=== PATIENT | female | born 1980 | race Caucasian/White ===

== ENCOUNTER 2023-05-15 10:35 | Inpatient (IN) | payer OTHER ==
[2023-05-15 11:56] VITALS: BMI 35.3
[2023-05-15] MEDS ORDERED: morphine SULFATE/PF 1 MG/2 ML (2cc Syringe - QUVA) EP ONE (12:16)
[2023-05-15] MEDS ORDERED: ONDANSETRON 4 MG/2 ML VIAL IVPUSH PRN (12:16)
[2023-05-15] MEDS ORDERED: ACETAMINOPHEN 325 MG TABLET (FP) PO PRN (12:16)
[2023-05-15] MEDS ORDERED: IBUPROFEN 600 MG TABLET (FP) PO PRN (12:16)
[2023-05-15] MEDS ORDERED: SODIUM CHLORIDE 0.9% P/F 10 ML VIAL IJ ONE ×2 (12:23→12:57)
[2023-05-15] MEDS ORDERED: ceFAZolin SODIUM 1 GM VIAL ONE (12:23)
[2023-05-15] MEDS ORDERED: PHENYLEPHRINE HCL 10 MG/1 ML SINGLE DOSE VIAL ONE (12:48)
[2023-05-15] MEDS ORDERED: OXYTOCIN 10 UNITS/ML VIAL ONE (13:10)
[2023-05-15] MEDS ORDERED: METHYLERGONOVINE MALEATE 0.2 MG/1 ML AMP IM ONE (13:15)
[2023-05-15] MEDS ORDERED: FENTANYL CITRATE/PF 50 MCG/ML VIAL ONE (13:32)
[2023-05-15 13:56] LABS: CORD HCO3 23.7 mmHg (20-29); CORD PCO2 53.1 mmHg (30-78); CORD pH 7.267 (7.14-7.44)
[2023-05-15 13:59] LABS: CORD BASE EXCESS -1.7 mmol/L (0-2); CORD HCO3 23.5 mmHg (20-29); CORD PCO2 41.5 mmHg (30-78); CORD pH 7.371 (7.14-7.44)
[2023-05-15] MEDS ORDERED: CITRIC ACID/SODIUM CITRATE 30 ML UNIT-DOSE CUP PO ONE (14:13)
[2023-05-15] MEDS ORDERED: ELECTROLYTE-148 SOLN 1,000 ML IV SCH (14:15)
[2023-05-15] MEDS ORDERED: METHYLERGONOVINE MALEATE 0.2 MG/1 ML AMP IM PRN (14:22)
[2023-05-15] MEDS ORDERED: OXYTOCIN 20 UNITS in 0.9% NS 20 UNIT/1,000 ML INFUS.BAG IV ONE (14:26)
[2023-05-15] MEDS: OXYTOCIN 20 UNITS in 0.9% NS 20 UNIT/1,000 ML INFUS.BAG IV SCH ×2 (14:30→23:45)
[2023-05-15] MEDS: IBUPROFEN 800 MG/8 ML IJ IVPB PRN (16:42)
[2023-05-15] MEDS ORDERED: ceFAZolin 2 GRAM PREMIX BAG IVPB SCH (18:00)
[2023-05-15] MEDS: CEFAZOLIN SODIUM 2 GM in DEXTROSE 5%-WATER 100 ML IVPB SCH (18:18)
[2023-05-16] MEDS: CEFAZOLIN SODIUM 2 GM in DEXTROSE 5%-WATER 100 ML IVPB SCH ×2 (01:40→10:38)
[2023-05-16] MEDS ORDERED: oxyCODONE HCL 5 MG TABLET PO PRN (02:22)
[2023-05-16] MEDS: IBUPROFEN 800 MG/8 ML IJ IVPB PRN (05:38)
[2023-05-16 07:49] VITALS: RESP 18
[2023-05-16] MEDS: oxyCODONE HCL 5 MG TABLET PO PRN ×2 (09:08→14:09)
[2023-05-16] MEDS: SIMETHICONE 80 MG TAB.CHEW (FP) PO PRN ×3 (09:09→19:59)
[2023-05-16 09:41] LABS: BASO % 0.3 % (0-2.0); EOS % 0.4 % (0-4.5); HEMATOCRIT 34.1 % (32.4-45.2); HEMOGLOBIN 11.4 GM/dL (10.7-15.3); LYMPH % 12.2 % (8-40); MCH 29.9 pg (25.7-33.7); MCHC 33.3 g/dl (32.0-36.0); MEAN CELL VOLUME 89.7 fl (80-96); MEAN PLT VOLUME 8.7 fl (7.5-11.1); MONO % 5.3 % (3.8-10.2); NEUT % 81.8 % (42.8-82.8); PLATELET COUNT 220 10^3/uL (134-434); RDW 16.3 % (11.6-15.6); WHITE BLOOD COUNT 10.3 K/mm3 (4.0-10.0)
[2023-05-16] MEDS: ENOXAPARIN NA (PORCINE) 40 MG/0.4 ML DISP.SYRIN SQ SCH (10:45)
[2023-05-16] MEDS ORDERED: BISACODYL 10 MG SUPP.RECT RC PRN (14:22)
[2023-05-16] MEDS: IBUPROFEN 600 MG TABLET (FP) PO PRN ×2 (15:35→19:59)
[2023-05-16] MEDS: ACETAMINOPHEN 325 MG TABLET (FP) PO PRN (23:07)
[2023-05-17] MEDS: IBUPROFEN 600 MG TABLET (FP) PO PRN ×3 (08:28→23:18)
[2023-05-17] MEDS: SIMETHICONE 80 MG TAB.CHEW (FP) PO PRN ×3 (08:29→19:45)
[2023-05-17] MEDS: ACETAMINOPHEN 325 MG TABLET (FP) PO PRN ×2 (09:46→19:45)
[2023-05-17] MEDS: ENOXAPARIN NA (PORCINE) 40 MG/0.4 ML DISP.SYRIN SQ SCH (09:46)
[2023-05-18] MEDS: ACETAMINOPHEN 325 MG TABLET (FP) PO PRN (06:21)
[2023-05-18 08:12] LABS: BASO % 0.4 % (0-2.0); EOS % 2.4 % (0-4.5); HEMATOCRIT 30.8 % (32.4-45.2); HEMOGLOBIN 10.2 GM/dL (10.7-15.3); LYMPH % 11.9 % (8-40); MCH 29.6 pg (25.7-33.7); MCHC 32.9 g/dl (32.0-36.0); MEAN CELL VOLUME 89.9 fl (80-96); MEAN PLT VOLUME 8.2 fl (7.5-11.1); MONO % 5.5 % (3.8-10.2); NEUT % 79.8 % (42.8-82.8); PLATELET COUNT 260 10^3/uL (134-434); RBC 3.43 M/mm3 (3.60-5.2); RDW 16.5 % (11.6-15.6); WHITE BLOOD COUNT 10.8 K/mm3 (4.0-10.0)
[2023-05-18] MEDS: SIMETHICONE 80 MG TAB.CHEW (FP) PO PRN (09:33)
[2023-05-18] MEDS: ENOXAPARIN NA (PORCINE) 40 MG/0.4 ML DISP.SYRIN SQ SCH (09:34)
[2023-05-18] MEDS: IBUPROFEN 600 MG TABLET (FP) PO PRN (09:34)
[2023-05-18 09:51] VITALS: BP 113/68; PULSE 72; TEMP 98.1
== END 2023-05-18 13:00 | disposition home or self-care (01) | DRG 540 ==
LOC: JLDR 10:35 → J3W 16:00
PROVIDERS: ADMIT Obstetrics & Gynecology; ATTEND Obstetrics & Gynecology
PROC: 10D00Z1 Extraction of Products of Conception, Low, Open Approach (ICD-10-PCS; principal; 2023-05-15)
PROC: 0UB70ZZ Excision of Bilateral Fallopian Tubes, Open Approach (ICD-10-PCS; 2023-05-15)
DX: O34.211 Maternal care for low transverse scar from previous cesarean delivery (principal); O99.214 Obesity complicating childbirth; E66.9 Obesity, unspecified; O69.81X0 Labor and delivery complicated by cord around neck, without compression, not applicable or unspecified; Z3A.39 39 weeks gestation of pregnancy; Z37.0 Single live birth; Z30.2 Encounter for sterilization
CPT/HCPCS: 36415; 36600; 80048; 82803; 85025; 85610; 85730; 86780; 86850; 86900; 86901; 88302-TC; 88307-TC